=== PATIENT | male | born 1985 | race Caucasian/White ===

== ENCOUNTER 2016-06-21 22:36 | Emergency (ER) | payer OTHER ==
--- NOTE | 2016-06-21 23:31 | ED ORDER SUMMARY ---
..... Patient: PAULINO CHAVEZ OrderSheet [facility] VisitID: [id number] [address] [place] [address] 30y, M Registration Date/Time: 06/21/2016 ORDER SHEET Weight: 97.5 kg (stated) Allergies: No Known Drug Allergy GENERAL ORDERS: - (pack wound with aquacell and meripex cover.) (23:23 06/21/2016 Norma GUEVARA) (Ack 23:30 JQuivey R.N.) (23:45 JQuivey R.N.) MEDICATION ORDERS: Bactrim DS PO (Tablet 800-160 mg) 2 tabs (NOW) (23:21 06/21/2016 Norma GUEVARA) (Ack 23:30 JQuivey R.N.) (23:45 JQuivey R.N.) IV FLUIDS: ORDER SHEET NOTES: [Electronically signed by Carl Morfin R.N. (00:07 06/22/2016)] [Electronically signed by Zack Joseph MD (23:35 06/24/2016)] [Electronically locked/signed by Carl Morfin R.N. (00:07 06/22/2016)]
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
--- NOTE | 2016-06-21 23:31 | ED ORDER SUMMARY ---
..... Patient: PAULINO CHAVEZ OrderSheet [facility] VisitID: [id number] [address] [place] [address] 30y, M Registration Date/Time: 06/21/2016 ORDER SHEET Weight: 97.5 kg (stated) Allergies: No Known Drug Allergy GENERAL ORDERS: - (pack wound with aquacell and meripex cover.) (23:23 06/21/2016 Norma GUEVARA) (Ack 23:30 JQuivey R.N.) (23:45 JQuivey R.N.) MEDICATION ORDERS: Bactrim DS PO (Tablet 800-160 mg) 2 tabs (NOW) (23:21 06/21/2016 Norma GUEVARA) (Ack 23:30 JQuivey R.N.) (23:45 JQuivey R.N.) IV FLUIDS: ORDER SHEET NOTES: [Electronically signed by Carl Morfin R.N. (00:07 06/22/2016)] [Electronically signed by Zack Joseph MD (23:35 06/24/2016)] [Electronically locked/signed by Carl Morfin R.N. (00:07 06/22/2016)]
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
--- NOTE | 2016-06-24 23:35 | ED MAR SUMMARY ---
..... Medication Administration Record [facility] [address] [place] [address] Patient: PAULINO CHAVEZ Visit ID: [id number] 30y, M Weight: 97.5 kg Height/Length: 76 in BMI: 26.2 ALLERGIES: No Known Drug Allergy Given 23:42 06/21/2016 Carl Morfin R.N. Medication Administered: BACTRIM DS [PO] (SULFAMETHOXAZOLE-TMP DS), Dose: 2 tab PO. Medication Ordered: Bactrim DS PO (Tablet 800-160 mg) 2 tabs (NOW).
--- NOTE | 2016-06-24 23:35 | ED MED RECONCILIATION SUMMARY ---
Patient: PAULINO CHAVEZ Medication Reconciliation Report [facility] VisitID: [id number] [address] [place] [address] 30y, M Registration Date/Time: 06/21/2016 Weight: 97.5 kg Height/Length: 76 in. BMI: 26.2 ALLERGIES: No Known Drug Allergy The patient's Home Medications are listed below: NONE. The source(s) of the original Home Medication information: patient The following Medications were given to the patient in the Emergency Department: Bactrim DS [PO] PO 2 tab, administered: 06/21/2016 11:42:00 PM The following Medications were prescribed to the patient: Acetaminophen (available over the counter): take according to label instructions. -- Zack Joseph MD Bactrim DS 800 mg / 160 mg: Take 1 tablet orally every 12 hours for 7 days. Dispense fourteen (14). No refills. Substitution is permissible. -- Zack Joseph MD
--- NOTE | 2016-06-24 23:35 | ED MED RECONCILIATION SUMMARY ---
Patient: PAULINO CHAVEZ Medication Reconciliation Report [facility] VisitID: [id number] [address] [place] [address] 30y, M Registration Date/Time: 06/21/2016 Weight: 97.5 kg Height/Length: 76 in. BMI: 26.2 ALLERGIES: No Known Drug Allergy The patient's Home Medications are listed below: NONE. The source(s) of the original Home Medication information: patient The following Medications were given to the patient in the Emergency Department: Bactrim DS [PO] PO 2 tab, administered: 06/21/2016 11:42:00 PM The following Medications were prescribed to the patient: Acetaminophen (available over the counter): take according to label instructions. -- Zack Joseph MD Bactrim DS 800 mg / 160 mg: Take 1 tablet orally every 12 hours for 7 days. Dispense fourteen (14). No refills. Substitution is permissible. -- Zcak Joseph MD
--- NOTE | 2016-06-24 23:35 | ED MAR SUMMARY ---
..... Medication Administration Record [facility] [address] [place] [address] Patient: PAULINO CHAVEZ Visit ID: [id number] 30y, M Weight: 97.5 kg Height/Length: 76 in BMI: 26.2 ALLERGIES: No Known Drug Allergy Given 23:42 06/21/2016 Carl Morfin R.N. Medication Administered: BACTRIM DS [PO] (SULFAMETHOXAZOLE-TMP DS), Dose: 2 tab PO. Medication Ordered: Bactrim DS PO (Tablet 800-160 mg) 2 tabs (NOW).
--- NOTE | 2016-06-24 23:35 | ED DISCHARGE INSTRUCTIONS ---
Patient: PAULINO CHAVEZ General Instructions [facility] VisitID: [id number] [place] [address] 30y, M Registration Date/Time: 06/21/2016 Single deep skin avulsion of the left great toe. Foreign body present.No left toenail injury or infection present. Treatment not delayed. Single contusion with abrasion to the left great toe.No hematoma or left toenail injury. INSTRUCTIONS Protect wound and keep wound area clean. Leave dressing in place until seen in follow-up. Keep wounds dry. You may walk and bear weight as tolerated. Warnings: GENERAL WARNINGS: Return or contact your physician immediately if your condition worsens or changes unexpectedly, if not improving as expected, or if other problems arise. Prescription Medications: Bactrim DS 800 mg / 160 mg: Take 1 tablet orally every 12 hours for 7 days. Dispense fourteen (14). No refills. Substitution is permissible. OTC Medications: Acetaminophen (available over the counter): take according to label instructions. Follow-up: Follow up with your doctor Friday in three days. Call for the next available appointment. Understanding of the discharge instructions verbalized by patient. ADDITIONAL INFORMATION Contusion,Soft Tissue You have a CONTUSION, which is a bruise with swelling and some bleeding under the skin. There are no broken bones. This injury takes a few days to a few weeks to heal. Home Care: 1) Keep the injured part elevated to reduce pain and swelling. This is especially important during the first 48 hours. 2) Make an ice pack (ice cubes in a plastic bag, wrapped in a towel) and apply for 20 minutes every 1-2 hours the first day. Continue this 3-4 times a day until the pain and swelling goes away. 3) You may use acetaminophen (Tylenol) or ibuprofen (Motrin, Advil) to control pain, unless another pain medicine was prescribed. [ NOTE : If you have chronic liver or kidney disease or ever had a stomach ulcer or GI bleeding, talk with your doctor before using these medicines.] Follow Up with your doctor or this facility if you are not improving within the next THREE days. [NOTE: If X-rays were taken, they will be reviewed by a radiologist. You will be notified of any new findings that may affect your care.] Get Prompt Medical Attention if any of the following occur: -- Pain or swelling increases -- Injured arm or leg becomes cold, blue, numb or tingly -- Redness, warmth or drainage from the skin You have been given the following additional information: Contusion, Soft Tissue You may walk and bear weight as tolerated. (Electronically signed by Zack Joseph MD 06/24/2016 23:35)
== END 2016-06-21 23:49 | disposition home or self-care (01) ==
LOC: ED SRH 22:36
DX: S90.112A Contusion of left great toe without damage to nail, initial encounter (principal); S91.122A Laceration with foreign body of left great toe without damage to nail, initial encounter; W23.1XXA Caught, crushed, jammed, or pinched between stationary objects, initial encounter; Y92.009 Unspecified place in unspecified non-institutional (private) residence as the place of occurrence of the external cause; Y99.9 Unspecified external cause status; F17.210 Nicotine dependence, cigarettes, uncomplicated
CPT/HCPCS: 83980; 84093